=== PATIENT | female | born 1990 | race Hispanic/Latino ===

== ENCOUNTER 2023-07-02 11:05 | Inpatient (IN) | payer OTHER ==
[2023-07-02 12:12] LABS: Actual Bicarbonate (HCO3v) 22.9 mEq/L (22-28); Analyzer IN Cardio CS NICU; Base Excess -2.4 mEq/L (-2 - +2); Calcium, Ionized (venous) 1.24 mmol/L (1.16-1.32); Chloride (VBG) 124 mmol/L (98-106); Hematocrit-VBG 43 % (36.0-47.0); Hemoglobin (Hb) 14.5 g/dL (11.7-15.5); Potassium (VBG) 3.69 mmol/L (3.70-5.30); Puncture Site Other Site; RapidComm Collect By ER NURSE; Sodium 169 mmol/L (133-146); pH (venous) 7.358 (7.32-7.43)
[2023-07-02 12:24] LABS: #Eosinphils 0.1 10x3/uL (0.0-0.5); #Monocytes 0.4 10x3/uL (0.0-1.1); #Neutrophils 4.6 10x3/uL (1.5-8.4); %Basophils 0.3 % (0.0-2.0); %Eosinophils 1.1 % (0.0-6.0); %Lymphocytes 29.7 % (18.0-47.0); %Monocytes 5.8 % (0.0-10.0); %Neutrophils 62.8 % (40.0-75.0); Hematocrit 42.9 % (34.9-44.5); Hemoglobin 13.7 g/dL (12.0-15.5); Mean Corpuscular HGB CONC 31.9 g/dL (32.0-36.0); Mean Corpuscular Hemoglobin 31.4 pg (27.0-33.0); Mean Corpuscular Volume 98.4 fl (81.6-98.3); Mean Platelet Volume 13.7 fl (7.4-10.4); Platelet Count 140 10x3/uL (150-450); RBC Distribution Width 13.2 % (11.5-14.5); Red Blood Cell (RBC) Count 4.36 10x6/uL (3.90-5.03); White Blood Cell (WBC) Count 7.4 10x3/uL (3.5-10.5)
[2023-07-02 12:39] LABS: ALT (SGPT) 52 U/L (8-55); AST (SGOT) 35 U/L (5-34); Albumin 4.6 g/dL (3.5-5.0); Alkaline Phosphatase 87 U/L (40-110); Anion Gap 15 mmol/L (10-20); BUN (Urea Nitrogen) 34 mg/dL (7.0-18.7); Bilirubin, Total 0.8 mg/dL (0.2-1.2); Calc. Creatinine Clearance 0 mL/min (70-130); Calcium 9.9 mg/dL (7.8-10.44); Carbon Dioxide 24 mmol/L (22-29); Chloride 127 mmol/L (98-107); Estimated GFR 91; Globulin 3.5 g/dL (2.4-3.5); Glucose 95 mg/dL (70-105); Magnesium 2.8 mg/dL (1.6-2.6); Potassium 3.6 mmol/L (3.5-5.1); Protein, Total 8.1 g/dL (6.0-8.3); Sodium 162 mmol/L (136-145)
[2023-07-02] MEDS ORDERED: Senokot S 8.6-50 MG TAB PO PRN (13:13)
[2023-07-02] MEDS ORDERED: Guaifenesin DM 100-10/5 ML UDCUP PO PRN (13:13)
[2023-07-02] MEDS ORDERED: Ibuprofen 100 MG/5 ML UDCUP PO PRN (14:39)
[2023-07-02] MEDS ORDERED: Dextrose 5% in Water 1,000 ML IV SCH ×2 (15:00→16:18)
[2023-07-02 16:37] LABS: Sodium 161 mmol/L (136-145)
[2023-07-02] MEDS ORDERED: D5 1/4 NS 1,000 ML IV SCH (18:00)
[2023-07-02] MEDS ORDERED: FLU VACC QS2023-24(6MOS UP)/PF 60 MCG/0.5 ML SYRINGE IM ONE (18:45)
[2023-07-02 20:54] LABS: Anion Gap 14 mmol/L (10-20); BUN (Urea Nitrogen) 28 mg/dL (7.0-18.7); Calc. Creatinine Clearance 74 mL/min (70-130); Calcium 9.1 mg/dL (7.8-10.44); Carbon Dioxide 20 mmol/L (22-29); Chloride 125 mmol/L (98-107); Estimated GFR 98; Glucose 154 mg/dL (70-105)
[2023-07-02 20:58] LABS: Sodium 156 mmol/L (136-145)
[2023-07-02] MEDS: D5 1/4 NS 1,000 ML IV SCH (21:10)
[2023-07-02] MEDS: Topiramate 100 MG TAB PO SCH (21:42)
[2023-07-02] MEDS: levETIRAcetam 500 mg/5 ml Oral Solution PO SCH (21:42)
[2023-07-02] MEDS: Glycopyrrolate 1 MG TAB PO SCH (21:42)
[2023-07-02] MEDS ORDERED: Potassium Chloride 20 MEQ in Premix 1 BAG IVPB SCH (22:45)
[2023-07-02] MEDS ORDERED: Lorazepam 2 MG/ML VIAL SLOW IVP PRN (23:43)
[2023-07-02] MEDS ORDERED: Magnesium Sulfate/D5W 1 GM/100 ML BAG IVPB SCH (23:45)
[2023-07-02] MEDS ORDERED: Lorazepam 2 MG/ML VIAL SLOW IVP SCH (23:45)
[2023-07-02] MEDS ORDERED: levETIRAcetam 500 MG/5 ML VIAL SLOW IVP SCH (23:45)
[2023-07-02] MEDS ORDERED: levETIRAcetam in NS 500 MG in Premix 1 BAG IVPB SCH (23:45)
[2023-07-03] MEDS ORDERED: Potassium Chloride 20 MEQ TAB PO SCH (00:15)
[2023-07-03] MEDS: D5 1/4 NS 1,000 ML IV SCH ×2 (03:55→03:57)
[2023-07-03 04:15] LABS: ALT (SGPT) 56 U/L (8-55); AST (SGOT) 45 U/L (5-34); Albumin 3.5 g/dL (3.5-5.0); Alkaline Phosphatase 71 U/L (40-110); Anion Gap 12 mmol/L (10-20); BUN (Urea Nitrogen) 19 mg/dL (7.0-18.7); Bilirubin, Total 0.6 mg/dL (0.2-1.2); Calc. Creatinine Clearance 88 mL/min (70-130); Calcium 8.4 mg/dL (7.8-10.44); Carbon Dioxide 21 mmol/L (22-29); Chloride 119 mmol/L (98-107); Estimated GFR 118; Globulin 2.8 g/dL (2.4-3.5); Glucose 123 mg/dL (70-105); Magnesium 2.9 mg/dL (1.6-2.6); Potassium 3.7 mmol/L (3.5-5.1); Protein, Total 6.3 g/dL (6.0-8.3); Sodium 148 mmol/L (136-145)
[2023-07-03 04:17] LABS: #Eosinphils 0.1 10x3/uL (0.0-0.5); #Monocytes 0.3 10x3/uL (0.0-1.1); #Neutrophils 3.8 10x3/uL (1.5-8.4); %Basophils 0.2 % (0.0-2.0); %Eosinophils 0.9 % (0.0-6.0); %Lymphocytes 34.6 % (18.0-47.0); %Monocytes 5.3 % (0.0-10.0); %Neutrophils 58.8 % (40.0-75.0); Hematocrit 34.2 % (34.9-44.5); Hemoglobin 11.1 g/dL (12.0-15.5); Mean Corpuscular HGB CONC 32.5 g/dL (32.0-36.0); Mean Corpuscular Hemoglobin 31.2 pg (27.0-33.0); Mean Corpuscular Volume 96.1 fl (81.6-98.3); Platelet Count 104 10x3/uL (150-450); RBC Distribution Width 12.7 % (11.5-14.5); Red Blood Cell (RBC) Count 3.56 10x6/uL (3.90-5.03); White Blood Cell (WBC) Count 6.4 10x3/uL (3.5-10.5)
[2023-07-03 04:40] LABS: Platelet Adequacy Comment Appears Decreased; RBC Morph Comment Within Normal Limits
[2023-07-03] MEDS: NS 0.9% w/ 20 MEQ KCL 1,000 ML/1,000 ML BAG IV SCH ×2 (07:03→20:56)
[2023-07-03] MEDS ORDERED: DESOGESTREL PO SCH (09:00)
[2023-07-03] MEDS ORDERED: ETHINYL ESTRADIOL PO SCH (09:00)
[2023-07-03] MEDS ORDERED: [UNRECOGNIZED DRUG - OTHER] PO SCH (09:00)
[2023-07-03] MEDS: Topiramate 100 MG TAB PO SCH ×2 (09:09→20:56)
[2023-07-03] MEDS: levETIRAcetam 500 mg/5 ml Oral Solution PO SCH ×2 (09:09→20:56)
[2023-07-03] MEDS: Glycopyrrolate 1 MG TAB PO SCH ×2 (09:10→20:56)
[2023-07-03] MEDS: Acetaminophen 650 MG Suppository PR PRN ×2 (15:40→23:38)
[2023-07-03 17:23] LABS: Anion Gap 11 mmol/L (10-20); BUN (Urea Nitrogen) 13 mg/dL (7.0-18.7); Calc. Creatinine Clearance 97 mL/min (70-130); Calcium 8.3 mg/dL (7.8-10.44); Carbon Dioxide 20 mmol/L (22-29); Chloride 121 mmol/L (98-107); Estimated GFR 121; Glucose 82 mg/dL (70-105); Potassium 3.8 mmol/L (3.5-5.1); Sodium 148 mmol/L (136-145)
[2023-07-03] MEDS: Ciprofloxacin 0.3% Ophth Soln 2.5 ml Bottle L EAR SCH (23:45)
[2023-07-04] MEDS: traMADol HCl 50 MG TAB PO PRN ×6 (00:41→21:09)
[2023-07-04 04:58] LABS: Anion Gap 11 mmol/L (10-20); BUN (Urea Nitrogen) 13 mg/dL (7.0-18.7); Calc. Creatinine Clearance 99 mL/min (70-130); Calcium 8.2 mg/dL (7.8-10.44); Carbon Dioxide 19 mmol/L (22-29); Chloride 124 mmol/L (98-107); Estimated GFR 121; Glucose 78 mg/dL (70-105); Sodium 150 mmol/L (136-145)
[2023-07-04] MEDS: D5 1/2 NS w/20 mEq KCL 1,000 ML IV SCH ×2 (06:34→21:08)
[2023-07-04] MEDS: Glycopyrrolate 1 MG TAB PO SCH ×2 (08:18→21:09)
[2023-07-04] MEDS: Topiramate 100 MG TAB PO SCH ×2 (08:18→21:09)
[2023-07-04] MEDS: levETIRAcetam 500 mg/5 ml Oral Solution PO SCH ×2 (08:19→21:09)
[2023-07-04] MEDS: Ciprofloxacin 0.3% Ophth Soln 2.5 ml Bottle L EAR SCH (13:08)
[2023-07-04 20:30] LABS: Bilirubin Neg (Negative); Blood, Urine 10 (Negative); Clarity Cloudy (Clear); Glucose, Urine (Dipstick) Normal (Negative); Ketone, Urine Negative (Negative); Leukocyte 25 (Negative); Nitrite Positive (Negative); Protein, Urine (Dipstick) 15 mg/dl (Neg-Trace); Specific Gravity, Urine 1.015 (1.005-1.030)
[2023-07-04 20:56] LABS: CAUTI Indications for Culture Alt mental st,lethar; RBC/HPF 0-3 HPF (0-3)
[2023-07-04 21:01] LABS: Bacteria/HPF 4+ HPF (None Seen)
[2023-07-04 21:03] LABS: Urine Culture Reflex No No
[2023-07-04] MEDS: Ciprofloxacin 500 MG TAB PO SCH (21:09)
[2023-07-05] MEDS: Ciprofloxacin 0.3% Ophth Soln 2.5 ml Bottle L EAR SCH (01:30)
[2023-07-05] MEDS: traMADol HCl 50 MG TAB PO PRN ×2 (01:40→07:57)
[2023-07-05 05:24] LABS: Anion Gap 9 mmol/L (10-20); BUN (Urea Nitrogen) 9 mg/dL (7.0-18.7); Calc. Creatinine Clearance 108 mL/min (70-130); Carbon Dioxide 19 mmol/L (22-29); Chloride 118 mmol/L (98-107); Estimated GFR 124; Glucose 88 mg/dL (70-105); Potassium 4.1 mmol/L (3.5-5.1); Sodium 142 mmol/L (136-145)
[2023-07-05] MEDS: Ciprofloxacin 500 MG TAB PO SCH (06:50)
[2023-07-05] MEDS: Topiramate 100 MG TAB PO SCH (07:59)
[2023-07-05] MEDS: levETIRAcetam 500 mg/5 ml Oral Solution PO SCH (07:59)
[2023-07-05] MEDS: Glycopyrrolate 1 MG TAB PO SCH (07:59)
[2023-07-05] MEDS ORDERED: Ciprofloxacin HCL/Dexameth Otic Drops 7.5 ml Bottle EA EAR SCH ×2 (09:30→21:00)
[2023-07-05 09:59] VITALS: BMI 18.8
[2023-07-05] MEDS: D5 1/2 NS w/20 mEq KCL 1,000 ML IV SCH (10:16)
[2023-07-05 12:52] VITALS: BP 98/57; TEMP 98.3
== END 2023-07-05 13:35 | disposition home or self-care (01) | DRG 641 ==
LOC: CSHERS 11:05 → CSHERHOLD 13:15 → CSHIMCU 18:02 → CSHTELE 07-04 23:56
PROVIDERS: ADMIT Hospitalist; ATTEND Internal Medicine
PROC: 4A043R1 Measurement of Venous Saturation, Peripheral, Percutaneous Approach (ICD-10-PCS; principal; 2023-07-02)
DX: E87.0 Hyperosmolality and hypernatremia (principal); N17.9 Acute kidney failure, unspecified; R00.0 Tachycardia, unspecified; Q92.8 Other specified trisomies and partial trisomies of autosomes; G40.909 Epilepsy, unspecified, not intractable, without status epilepticus; E86.0 Dehydration; R74.01 Elevation of levels of liver transaminase levels; H66.93 Otitis media, unspecified, bilateral; H60.93 Unspecified otitis externa, bilateral; Z96.643 Presence of artificial hip joint, bilateral; Z88.1 Allergy status to other antibiotic agents; Z88.8 Allergy status to other drugs, medicaments and biological substances; Z79.899 Other long term (current) drug therapy; Z98.890 Other specified postprocedural states
CPT/HCPCS: 36415; 71045; 80048; 80053; 81001; 82805; 83605; 83735; 83930; 83935; 85025; 87077; 87086; 93005; 93010; 96365; 96366; J1953; J2060; J3475; J3480; J7042; J7070